=== PATIENT | female | born 1985 | race Caucasian/White ===

== ENCOUNTER 2017-04-14 12:30 | Inpatient (IN) | payer OTHER ==
[~2017-04-14] VITALS: Ht 165.1 cm; Wt 61.7 kg
[~2017-04-14 12:30] MED LIST: ATARAX,VISTARIL50 MG PO; NICOTINE T21 MG/24 H T; ONDANSETRON HYDR4 M1 PO; ROBAXIN750 MG PO; THERA1 TAB PO
[2017-04-14 14:00] VITALS: BP 107/65
[2017-04-14] MEDS ORDERED: KLONOPIN1 M1 PO (14:43)
[2017-04-14] MEDS ORDERED: ZOLOFT100 MG PO (14:44)
[2017-04-14 14:48] LABS: BASO # 0.1 10*3/uL (0.0-0.1); BASO % 0.5 % (0.0-1.0); EOS # 0.1 10*3/uL (0.0-0.4); EOS % 1.1 % (1.0-4.0); HEMATOCRIT 38.2 % (37.0-47.0); HEMOGLOBIN 13.2 g/dl (12.0-16.0); LYMPH # 2.3 10*3/uL (1.3-4.4); LYMPH % 23.9 % (27.0-41.0); MEAN CORPUSCULAR HGB 34.2 pg (27.0-31.0); MEAN CORPUSCULAR HGB CONC 34.6 g/dl (33.0-37.0); MEAN PLATELET VOLUME 10.9 fl (9.6-12.3); MONO # 0.4 10*3/uL (0.1-1.0); MONO % 4.6 % (3.0-9.0); NEUT # 6.6 10*3/uL (2.3-7.9); NEUT % 69.7 % (47.0-73.0); PLATELET COUNT AUTOMATED 209 10*3/uL (130-400); RED BLOOD COUNT 3.86 10*6/uL (4.10-5.10); RED CELL DISTRI WIDTH 13.3 % (0-14.5); WHITE BLOOD COUNT 9.4 10*3/uL (4.8-10.8)
[2017-04-14 14:49] LABS: BILIRUBIN NEGATIVE (NEGATIVE); BLOOD NEGATIVE (NEGATIVE); CLARITY SL CLOUDY (CLEAR); COLOR YELLOW (YELLOW); GLUCOSE NEGATIVE (NEGATIVE); KETONE NEGATIVE (NEGATIVE); LEUKO ESTERASE NEGATIVE (NEGATIVE); NITRITE NEGATIVE (NEGATIVE); PH 5.5 (5.0-9.0); PROTEIN NEGATIVE (NEGATIVE); SPECIFIC GRAVITY 1.015 (1.005-1.030); UROBILINOGEN 0.2 E.U./dl (0.2-1.0)
[2017-04-14 14:58] LABS: BACTERIA 1+; RBC 0-2 rbc/hpf (0-2); URIC ACID CRYSTALS TR; URINE AMPHETAMINES < 1000 (1000ng/ml); URINE BARBITURATES < 200 (200ng/ml); URINE COCAINE < 300 (300ng/ml); URINE REFLEX COMMENT NO (NO)
[2017-04-14 15:05] LABS: ALBUMIN 3.9 gm/dl (3.1-4.5); ALKALINE PHOSPHATASE 66 U/L (45-117); BILIRUBIN, TOTAL 0.6 mg/dl (0.2-1.0); BUN 12 mg/dl (7-24); CARBON DIOXIDE 28 mmol/L (21-32); CHLORIDE 106 mmol/L (98-107); EST GLOM FILT AFRICAN AMERICAN > 60 ml/min; GLUCOSE 77 mg/dL (65-99); POTASSIUM 3.7 mmol/L (3.5-5.1); SGOT/AST 26 IU/L (3-35); SGPT/ALT 33 U/L (12-78); SODIUM 138 mmol/L (136-145); TOTAL PROTEIN 6.7 gm/dL (6.4-8.2)
[2017-04-14 16:00] VITALS: BP 110/55
[2017-04-14 20:00] VITALS: BP 107/70
[2017-04-15] VITALS: BP 99/57
[2017-04-15 04:00] VITALS: BP 99/71
[2017-04-15 08:00] VITALS: BP 106/69
[2017-04-15 12:00] VITALS: BP 104/60
[2017-04-15 16:00] VITALS: BP 96/54
[2017-04-15 20:00] VITALS: BP 96/52
[2017-04-16] VITALS: BP 99/56
[2017-04-16 08:00] VITALS: BP 92/59
[2017-04-16 12:00] VITALS: BP 138/48; BP 98/58
[2017-04-16 16:00] VITALS: BP 94/62
[2017-04-16 20:00] VITALS: BP 94/52
[2017-04-17] VITALS: BP 91/50
[2017-04-17 06:01] LABS: BASO % 0.3 % (0.0-1.0); EOS # 0.2 10*3/uL (0.0-0.4); EOS % 2.2 % (1.0-4.0); HEMOGLOBIN 11.2 g/dl (12.0-16.0); LYMPH # 2.4 10*3/uL (1.3-4.4); LYMPH % 27.1 % (27.0-41.0); MEAN CELL VOLUME 99.7 fl (81.0-99.0); MEAN CORPUSCULAR HGB 33.8 pg (27.0-31.0); MEAN CORPUSCULAR HGB CONC 33.9 g/dl (33.0-37.0); MEAN PLATELET VOLUME 11.1 fl (9.6-12.3); MONO # 0.6 10*3/uL (0.1-1.0); MONO % 6.1 % (3.0-9.0); NEUT # 5.8 10*3/uL (2.3-7.9); NEUT % 64.1 % (47.0-73.0); PLATELET COUNT AUTOMATED 174 10*3/uL (130-400); RED BLOOD COUNT 3.31 10*6/uL (4.10-5.10); RED CELL DISTRI WIDTH 13.2 % (0-14.5)
[2017-04-17 06:27] LABS: EST GLOM FILT AFRICAN AMERICAN > 60 ml/min
[2017-04-17 08:00] VITALS: BP 96/60
[2017-04-17 12:00] VITALS: BP 94/70
[2017-04-17] MEDS ORDERED: ROPINIROLE HYD0.5 MG PO (14:29)
[2017-04-17] MEDS ORDERED: ATARAX,VISTARIL50 MG PO (14:29)
[2017-04-17] MEDS ORDERED: ZOFRAN 4 MG ED2 TAB PO (14:29)
[2017-04-17 16:00] VITALS: BP 99/53
== END 2017-04-17 18:15 | disposition home or self-care (01) | DRG 897 ==
LOC: 5E 12:30
PROVIDERS: Internal Medicine; Obstetrics & Gynecology
DX: F11.23 Opioid dependence with withdrawal (principal); F32.9 Major depressive disorder, single episode, unspecified; F41.9 Anxiety disorder, unspecified; R82.71 Bacteriuria; Z79.899 Other long term (current) drug therapy

== ENCOUNTER 2023-01-07 13:29 | Inpatient (IN) | payer OTHER ==
[~2023-01-07] VITALS: Ht 167.6 cm; Wt 50.9 kg
[~2023-01-07 13:29] MED LIST changes: +CELEXA20 MG PO; +DICYCLOMINE HYD20 MG PO; +KLONOPIN1 M1 PO; +METHOCARBAMOL750 M1 PO; +NATURE'S BLEND F1 MG PO; +ROPINIROLE HYD0.5 MG PO; +THERA TABLET400 MCG PO; +VITAMIN B-1100 M1 PO; +ZOFRAN 4 MG ED2 TAB PO; +ZOLOFT100 MG PO
[2023-01-07 13:36] VITALS: BP 112/67
[2023-01-07 14:36] LABS: BASO % 0.4 % (0.0-1.0); EOS # 0.2 10*3/uL (0.0-0.4); EOS % 3.2 % (1.0-4.0); HEMATOCRIT 39.2 % (37.0-47.0); LYMPH # 1.8 10*3/uL (1.3-4.4); LYMPH % 34.7 % (27.0-41.0); MEAN CELL VOLUME 94.5 fl (81.0-99.0); MEAN CORPUSCULAR HGB 30.6 pg (27.0-31.0); MEAN CORPUSCULAR HGB CONC 32.4 g/dl (33.0-37.0); MEAN PLATELET VOLUME 11.7 fl (9.6-12.3); MONO # 0.2 10*3/uL (0.1-1.0); MONO % 4.8 % (3.0-9.0); NEUT # 2.9 10*3/uL (2.3-7.9); NEUT % 56.7 % (47.0-73.0); PLATELET COUNT AUTOMATED 149 10*3/uL (130-400); RED BLOOD COUNT 4.15 10*6/uL (4.10-5.10); RED CELL DISTRI WIDTH 12.4 % (0-14.5)
[2023-01-07 14:46] LABS: ACT PARTIAL THROMBO TIME 27.4 SECONDS (20.0-32.1); INTERNATIONAL NORM RATIO 1.1 (2.0-3.5)
[2023-01-07 14:55] LABS: ALKALINE PHOSPHATASE 48 U/L (46-116); BETA-HCG, QUANT < 3.0 mIU/mL (0-10); BUN 9 mg/dl (9-23); CHLORIDE 105 mmol/L (98-107); POTASSIUM 4.1 mmol/L (3.4-5.1); TOTAL PROTEIN 6.6 gm/dL (6.0-8.0)
[2023-01-07 14:56] LABS: SGPT/ALT < 7 U/L (10-49)
[2023-01-07 17:09] LABS: BILIRUBIN Negative (Negative); BLOOD Negative (Negative); CLARITY Clear (Clear); COLOR Yellow (Yellow); GLUCOSE Negative (Negative); KETONE Negative (Negative); LEUKO ESTERASE Negative (Negative); NITRITE Negative (Negative); PH 7.5 (4.5-8.0)
[2023-01-07 17:21] LABS: URINE AMPHETAMINES Negative (1000ng/ml); URINE BARBITURATES Negative (200ng/ml); URINE BENZODIAZEPINES Negative (200ng/ml); URINE CANNABINOIDS (THC) Positive (50ng/ml); URINE COCAINE Negative (300ng/ml); URINE METHADONE Positive (300ng/ml); URINE OPIATES Negative (300ng/ml); URINE PHENCYCLIDINE Negative (25ng/ml)
[2023-01-07 17:51] LABS: RBC 0-2 rbc/hpf (0-2); WBC 0-2 wbc/hpf (0-5)
[2023-01-07 19:42] VITALS: BP 110/70
[2023-01-07 20:15] VITALS: BP 105/81
[2023-01-07] MEDS ORDERED: FLUVOXAMINE50 MG PO (20:26)
[2023-01-08] VITALS: BP 98/54
[2023-01-08 08:00] VITALS: BP 85/47
[2023-01-08 12:00] VITALS: BP 89/40
[2023-01-08 16:00] VITALS: BP 88/55
[2023-01-08 20:00] VITALS: BP 98/45
[2023-01-09] VITALS: BP 90/48
[2023-01-09 06:54] LABS: BASO % 0.6 % (0.0-1.0); EOS # 0.2 10*3/uL (0.0-0.4); EOS % 3.5 % (1.0-4.0); HEMATOCRIT 40.4 % (37.0-47.0); LYMPH # 1.7 10*3/uL (1.3-4.4); LYMPH % 31.1 % (27.0-41.0); MEAN CELL VOLUME 95.1 fl (81.0-99.0); MEAN CORPUSCULAR HGB 30.6 pg (27.0-31.0); MEAN CORPUSCULAR HGB CONC 32.2 g/dl (33.0-37.0); MEAN PLATELET VOLUME 11.2 fl (9.6-12.3); MONO # 0.3 10*3/uL (0.1-1.0); MONO % 5.9 % (3.0-9.0); NEUT # 3.2 10*3/uL (2.3-7.9); NEUT % 58.7 % (47.0-73.0); PLATELET COUNT AUTOMATED 144 10*3/uL (130-400); RED BLOOD COUNT 4.25 10*6/uL (4.10-5.10); RED CELL DISTRI WIDTH 12.5 % (0-14.5); WHITE BLOOD COUNT 5.4 10*3/uL (4.8-10.8)
[2023-01-09 07:08] LABS: BUN 11 mg/dl (9-23); CHLORIDE 103 mmol/L (98-107); POTASSIUM 4.2 mmol/L (3.4-5.1)
[2023-01-09 08:00] VITALS: BP 92/47
[2023-01-09 12:00] VITALS: BP 95/51
[2023-01-09 15:57] VITALS: BP 105/54
[2023-01-09 20:00] VITALS: BP 95/53
[2023-01-10] VITALS: BP 98/53
[2023-01-10 04:23] LABS: BASO % 0.3 % (0.0-1.0); EOS # 0.2 10*3/uL (0.0-0.4); HEMATOCRIT 37.7 % (37.0-47.0); LYMPH % 34.3 % (27.0-41.0); MEAN CORPUSCULAR HGB 31.2 pg (27.0-31.0); MEAN CORPUSCULAR HGB CONC 32.9 g/dl (33.0-37.0); MEAN PLATELET VOLUME 11.3 fl (9.6-12.3); MONO # 0.4 10*3/uL (0.1-1.0); NEUT # 3.1 10*3/uL (2.3-7.9); NEUT % 54.2 % (47.0-73.0); PLATELET COUNT AUTOMATED 145 10*3/uL (130-400); RED BLOOD COUNT 3.97 10*6/uL (4.10-5.10); RED CELL DISTRI WIDTH 12.4 % (0-14.5); WHITE BLOOD COUNT 5.7 10*3/uL (4.8-10.8)
[2023-01-10 04:38] LABS: BUN 14 mg/dl (9-23); CHLORIDE 104 mmol/L (98-107); POTASSIUM 4.5 mmol/L (3.4-5.1)
[2023-01-10 08:00] VITALS: BP 106/50
[2023-01-10] MEDS ORDERED: VISTARIL25 MG PO (10:33)
[2023-01-10] MEDS ORDERED: MELATONIN5 M7 PO (10:33)
== END 2023-01-10 13:53 | disposition home or self-care (01) | DRG 773 ==
LOC: ED 13:29 → EDHOLD 14:14 → 5E 14:14 → EDHOLD 15:07 → 5E 19:32 → 4E 01-08 10:33 → 5E 01-08 21:38
PROVIDERS: Emergency Medicine; Student in an Organized Health Care Education/Training Program; ADMIT Internal Medicine; ATTEND Internal Medicine
DX: F11.23 Opioid dependence with withdrawal (principal); F41.9 Anxiety disorder, unspecified; F32.A Depression, unspecified; Z87.442 Personal history of urinary calculi

== ENCOUNTER 2023-05-10 09:52 | Inpatient (IN) | payer OTHER ==
[~2023-05-10] VITALS: Ht 167.6 cm; Wt 54.6 kg
[~2023-05-10 09:52] MED LIST changes: +FLUVOXAMINE50 MG PO; +MELATONIN5 M7 PO; +VISTARIL25 MG PO
[2023-05-10 10:00] VITALS: BP 112/72
[2023-05-10 11:42] LABS: BASO % 0.7 % (0.0-1.0); EOS # 0.3 10*3/uL (0.0-0.4); EOS % 5.9 % (1.0-4.0); HEMATOCRIT 41.1 % (37.0-47.0); LYMPH # 1.6 10*3/uL (1.3-4.4); MEAN CELL VOLUME 95.4 fl (81.0-99.0); MEAN CORPUSCULAR HGB 31.6 pg (27.0-31.0); MEAN CORPUSCULAR HGB CONC 33.1 g/dl (33.0-37.0); MEAN PLATELET VOLUME 11.3 fl (9.6-12.3); MONO # 0.2 10*3/uL (0.1-1.0); MONO % 5.7 % (3.0-9.0); NEUT % 48.5 % (47.0-73.0); PLATELET COUNT AUTOMATED 190 10*3/uL (130-400); RED BLOOD COUNT 4.31 10*6/uL (4.10-5.10); WHITE BLOOD COUNT 4.2 10*3/uL (4.8-10.8)
[2023-05-10 12:04] LABS: ALKALINE PHOSPHATASE 44 U/L (46-116); BUN 10 mg/dl (9-23); CHLORIDE 106 mmol/L (98-107); POTASSIUM 4.9 mmol/L (3.4-5.1); SGPT/ALT 16 U/L (10-49); TOTAL PROTEIN 6.5 gm/dL (6.0-8.0)
[2023-05-10 12:06] LABS: ETHYL ALCOHOL < 3.0 mg/dl (<3)
[2023-05-10 14:35] LABS: BILIRUBIN Negative (Negative); BLOOD Negative (Negative); CLARITY Clear (Clear); COLOR Yellow (Yellow); GLUCOSE Negative (Negative); KETONE Negative (Negative); LEUKO ESTERASE Negative (Negative); NITRITE Negative (Negative); PH 7.5 (4.5-8.0)
[2023-05-10 14:42] LABS: URINE AMPHETAMINES Negative (1000ng/ml); URINE BARBITURATES Negative (200ng/ml); URINE BENZODIAZEPINES Negative (200ng/ml); URINE CANNABINOIDS (THC) Positive (50ng/ml); URINE COCAINE Negative (300ng/ml); URINE METHADONE Positive (300ng/ml); URINE OPIATES Negative (300ng/ml); URINE PHENCYCLIDINE Negative (25ng/ml)
[2023-05-10 15:02] LABS: RBC 0-2 rbc/hpf (0-2); WBC 0-2 wbc/hpf (0-5)
[2023-05-10 15:03] LABS: BACTERIA 1+
[2023-05-10 16:00] VITALS: BP 92/57
[2023-05-10 20:00] VITALS: BP 109/63
[2023-05-11] VITALS: BP 108/59
[2023-05-11 08:00] VITALS: BP 96/55
[2023-05-11 08:58] VITALS: BP 105/69
[2023-05-11 12:00] VITALS: BP 143/75
[2023-05-11 16:00] VITALS: BP 118/50
[2023-05-11 20:00] VITALS: BP 108/51
[2023-05-12] VITALS: BP 101/61
[2023-05-12 08:00] VITALS: BP 94/48
[2023-05-12 16:00] VITALS: BP 95/49
[2023-05-12 20:00] VITALS: BP 99/42
[2023-05-13] VITALS: BP 98/45
[2023-05-13 08:00] VITALS: BP 95/41
[2023-05-13] MEDS ORDERED: TRAZODONE50 MG PO (08:38)
[2023-05-13] MEDS ORDERED: VISTARIL25 MG PO (08:38)
[2023-05-13] MEDS ORDERED: METHOCARBAMOL750 M1 PO (08:38)
[2023-05-13] MEDS ORDERED: ONDANSETRON HYDR4 M1 PO (08:38)
== END 2023-05-13 11:30 | disposition home or self-care (01) | DRG 773 ==
LOC: 4E 09:52
PROVIDERS: Registered Nurse; ADMIT Internal Medicine; ATTEND Internal Medicine
DX: F11.23 Opioid dependence with withdrawal (principal); F42.9 Obsessive-compulsive disorder, unspecified; F41.9 Anxiety disorder, unspecified; F32.9 Major depressive disorder, single episode, unspecified; R00.1 Bradycardia, unspecified; G47.00 Insomnia, unspecified; Z79.899 Other long term (current) drug therapy